=== PATIENT | female | born 1975 | race Caucasian/White ===

== ENCOUNTER 2016-05-09 09:20 | Observation (INO) | payer BC ==
[~2016-05-09] VITALS: Ht 175.3 cm; Wt 62.3 kg
[~2016-05-09 09:20] MED LIST: NEXIUM 24HR20 MG PO; NEXIUM40 MG; RANITIDINE HCL300 MG PO
[2016-05-09 09:48] LABS: BASOPHIL COUNT 0.1 K/uL (0-0.1); EOSINOPHIL (%) 6.5 % (0-5); EOSINOPHIL COUNT 0.4 K/uL (0-0.3); HEMATOCRIT 42.8 % (36.0-46.0); IMMATURE GRANULOCYTE (%) 0.3 % (0.0-0.7); INSTRUMENT ABS NEUTROPHIL CT 4.1 K/uL; LYMPHOCYTE COUNT 1.3 K/uL (1.0-2.8); MCHC 32.5 G/DL (30.0-36.0); MCV 95.5 FL (83-99); MONOCYTE COUNT 0.7 K/uL (0-0.8); NEUTROPHIL (%) 62.7 % (45-76); NEUTROPHIL COUNT 4.1 K/uL (1.8-6.4); PLATELET COUNT 303 K/uL (156-360); RBC DIS.WIDTH-CV 13.7 % (11.8-14.6); RBC DIS.WIDTH-SD 48.4 % (39-53); RED BLOOD COUNT 4.48 M/uL (3.80-5.20); WHITE BLOOD COUNT 6.5 K/uL (4.1-10.2)
[2016-05-09 09:57] LABS: CHLORIDE 103 mEq/L (99-109); POTASSIUM 4.4 mEq/L (3.7-5.4); SODIUM 140 mEq/L (136-147)
[2016-05-09 09:59] LABS: D-DIMER ELISA 0.25 mg/L FEU (< 0.57); GLUCOSE 76 mg/dL (70-99)
[2016-05-09 10:00] LABS: ANION GAP 17 MEQ/L (2-14)
[2016-05-09 10:01] LABS: TOTAL BILIRUBIN 0.8 mg/dL (0.0-1.0)
[2016-05-09 10:02] LABS: ALKALINE PHOSPHATASE 33 IU/L (3-129)
[2016-05-09 10:03] LABS: GFR ESTIMATE (CALCULATED) > 59 mL/min/
[2016-05-09 10:04] LABS: UREA NITROGEN (BUN) 4 mg/dL (9-23)
[2016-05-09 10:09] LABS: TROP-I INTERPRETATION NEGATIVE; TROPONIN-I < 0.01 ng/mL (0.0-0.30)
[2016-05-09] MEDS ORDERED: BENTYL10 MG PO (11:30)
[2016-05-09] MEDS ORDERED: PROTONIX40 MG PO (11:31)
[2016-05-09 13:01] VITALS: BP 130/70
[2016-05-09 16:14] LABS: TROP-I INTERPRETATION NEGATIVE; TROPONIN-I < 0.01 ng/mL (0.0-0.30)
[2016-05-09 21:00] VITALS: BP 132/76
[2016-05-09 22:53] LABS: TROP-I INTERPRETATION NEGATIVE; TROPONIN-I < 0.01 ng/mL (0.0-0.30)
[2016-05-09 23:15] VITALS: BP 133/86
== END 2016-05-10 00:16 | disposition home or self-care (01) ==
LOC: EME 09:20 → EDOF 11:17 → 5WEST 12:50
PROVIDERS: Emergency Medicine; Internal Medicine
DX: R07.89 Other chest pain (principal); K21.9 Gastro-esophageal reflux disease without esophagitis; I10 Essential (primary) hypertension; E78.5 Hyperlipidemia, unspecified; Z87.891 Personal history of nicotine dependence
CPT/HCPCS: 71010; 80053; 84443; 84484; 85025; 85379; 93005; 99281; 99285; G0378; J1650; J2270; J2405; J7030